=== PATIENT | female | born 1995 | race Caucasian/White ===

== ENCOUNTER 2017-07-28 06:47 | Day surgery (SDC) | payer BC ==
[~2017-07-28 06:47] MED LIST: Lactated Ringers 1,000 ML IV SCH; Lidocaine 1%/Sod Bicarbonate in NS 8.4% 1 ML Syringe PRN; Sodium Chloride 0.9% 10 ML Syringe FLUSH PRN
[2017-07-28] MEDS ORDERED: Dexamethasone 4 MG/ML 5 ML MDV ONE (06:54)
[2017-07-28] MEDS ORDERED: fentaNYL 250 MCG/5 ML SDV ONE (06:54)
[2017-07-28] MEDS ORDERED: HYDROmorphone 1 MG/ML Syringe ONE (06:54)
[2017-07-28] MEDS ORDERED: Rocuronium 50 MG/5 ML Vial ONE (06:54)
[2017-07-28] MEDS ORDERED: Ondansetron 4 MG/2 ML SDV ONE (06:54)
[2017-07-28] MEDS ORDERED: Midazolam 1 MG/ML 2 ML SDV ONE (06:54)
[2017-07-28] MEDS ORDERED: Lidocaine 1% 4 ML ONE (06:54)
[2017-07-28] MEDS ORDERED: Propofol 200 MG/20 ML SDV ONE (06:54)
[2017-07-28] MEDS ORDERED: Ketorolac 30 MG/ML SDV ONE (06:55)
[2017-07-28] MEDS ORDERED: Lactated Ringers 1,000 ML ONE (07:06)
--- NOTE | 2017-07-28 07:10 | PCM.PREANE ---
Preanesthetic Assessment - Procedure Proposed Procedure: Laparoscopy diagnostic with possible biopsies; uterine D and C hysteroscopy with conization. - Anesthesia/Transfusion/Family Hx Anesthesia History: Prior Anesthesia Without Reaction Family History of Anesthesia Reaction: No Transfusion History: No Prior Transfusion(s) Intubation History: Unknown - Review of Systems General: No Symptoms Pulmonary: No Symptoms (1/2PPD) Cardiovascular: No Symptoms Gastrointestinal: Abdominal Pain, Diarrhea Neurological: No Symptoms Other: Reports: Easy Bleeding, Easy Bruising, Depression, Anxiety - Physical Assessment NPO Status Date: 07/27/17 NPO Status Time: 23:00 Pulse: 96 O2 Sat by Pulse Oximetry: 97 Respiratory Rate: 16 Blood Pressure: 131/74 Temperature: 37.2 C Height: 1.72 m Weight: 84 kg ASA Class: 1 Mental Status: Alert & Oriented x3 Dentition: Reports: Normal Dentition Thyro-Mental Finger Breadths: 3 Mouth Opening Finger Breadths: 3 ROM/Head Extension: Full Lungs: Clear to Auscultation, Normal Respiratory Effort Cardiovascular: Regular Rate, Regular Rhythm - Lab Values: Labs were reviewed. - Allergies Allergies/Adverse Reactions: Allergies Allergy/AdvReac Type Severity Reaction Status Date / Time amoxicillin [From Augmentin] Allergy Cannot Verified 07/27/17 12:51 Remember clavulanic acid Allergy Cannot Verified 07/27/17 12:51 [From Augmentin] Remember - Anesthesia Plan Pre-Op Medication Ordered: None - Acknowledgements Anesthesia Type Planned: General Anesthesia Pt an Appropriate Candidate for the Planned Anesthesia: Yes Alternatives and Risks of Anesthesia Discussed w Pt/Guardian: Yes Pt/Guardian Understands and Agrees with Anesthesia Plan: Yes PreAnesthesia Questionnaire HEENT History: Reports: Impaired Vision, Other (See Below) Other HEENT History: wears contacts Cardiovascular History: Reports: None Respiratory History: Reports: None Gastrointestinal History: Reports: None [employer] History: Reports: Endometriosis, , Other (See Below) Other OB/BYN History: YVONNE II, HPV, LGSIL, menorrhagia, mild dysplasia of cervic , pelvic pain, prolonged menstruation Musculoskeletal History: Reports: None Neurological History: Reports: None Psychiatric History: Reports: Anxiety, Depression, Suicide Attempt Endocrine/Metabolic History: Reports: None Hematologic History: Reports: Anemia Immunologic History: Reports: None Oncologic (Cancer) History: Reports: None Dermatologic History: Reports: None - Past Surgical History Head Surgeries/Procedures: Reports: None HEENT Surgical History: Reports: Tonsillectomy Cardiovascular Surgical History: Reports: None Respiratory Surgical History: Reports: None GI Surgical History: Reports: None Female Surgical History: Reports: Other (See Below) Other Female Surgeries/Procedures: colposcopy Endocrine Surgical History: Reports: None Neurological Surgical History: Reports: None Musculoskeletal Surgical History: Reports: None Oncologic Surgical History: Reports: None Dermatological Surgical History: Reports: None - SUBSTANCE USE Smoking Status *Q: Former Smoker Recreational Drug Use History: No - HOME MEDS Home Medications: Home Meds Norethindrone-E.estradiol-Iron [Loestrin Fe 1.5-30 Tablet] 1 tab PO DAILY [History] - CURRENT (IN HOUSE) MEDS Current Meds: Current Medications Lactated Ringer's (Ringers, Lactated) 1,000 mls @ 125 mls/hr IV ASDIRECTED AMPARO Stop: 07/28/17 23:00 Lidocaine/Sodium Bicarbonate (Buffered Lidocaine 1% In Ns 8.4%) 0.25 ml .XX ONETIME PRN PRN Reason: Prior to IV Start Stop: 07/28/17 18:00 Sodium Chloride (Saline Flush) 10 ml FLUSH ASDIRECTED PRN PRN Reason: Keep Vein Open Stop: 07/28/17 18:00 Discontinued Medications Dexamethasone (Dexamethasone) Confirm Administered Dose 20 mg .ROUTE .STK-MED ONE Stop: 07/28/17 06:55 Fentanyl (Sublimaze) Confirm Administered Dose 250 mcg .ROUTE .STK-MED ONE Stop: 07/28/17 06:55 Hydromorphone HCl (Dilaudid) Confirm Administered Dose 1 mg .ROUTE .STK-MED ONE Stop: 07/28/17 06:55 Lidocaine HCl (Xylocaine-Mpf 1%) Confirm Administered Dose 4 mls @ as directed .ROUTE .STK-MED ONE Stop: 07/28/17 06:55 Lactated Ringer's (Ringers, Lactated) Confirm Administered Dose 1,000 mls @ as directed .ROUTE .STK-MED ONE Stop: 07/28/17 07:07 Ketorolac Tromethamine (Toradol) Confirm Administered Dose 30 mg .ROUTE .STK- MED ONE Stop: 07/28/17 06:56 Midazolam HCl (Versed 1 Mg/Ml) Confirm Administered Dose 2 mg .ROUTE .STK-MED ONE Stop: 07/28/17 06:55 Ondansetron HCl (Zofran) Confirm Administered Dose 4 mg .ROUTE .STK-MED ONE Stop: 07/28/17 06:55 Propofol (Diprivan 20 Ml) Confirm Administered Dose 200 mg .ROUTE .STK-MED ONE Stop: 07/28/17 06:55 Rocuronium Gurley (Zemuron) Confirm Administered Dose 50 mg .ROUTE .STK-MED ONE Stop: 07/28/17 06:55
[2017-07-28] MEDS ORDERED: Lidocaine 1% with EPINEPHrine 1:100,000 20 ML MDV ONE (07:28)
[2017-07-28] MEDS ORDERED: Bupivacaine 0.5% 30 ML SDV ONE (07:28)
[2017-07-28] MEDS ORDERED: Sodium Chloride 0.9% 50 ML SDV ONE (07:28)
[2017-07-28] MEDS ORDERED: Ondansetron 4 MG/2 ML SDV IVPUSH PRN (07:31)
[2017-07-28] MEDS ORDERED: ceFAZolin 1 GM Vial ONE ×2 (09:02)
[2017-07-28] MEDS ORDERED: Neostigmine Methylsulfate 10 MG/10 ML MDV ONE (09:04)
[2017-07-28] MEDS ORDERED: Glycopyrrolate 0.2 MG/ML SDV ONE ×4 (09:04)
--- NOTE | 2017-07-28 10:04 | PCM.OPNOTE ---
- General Post-Op/Procedure Note Date of Surgery/Procedure: 07/28/17 Operative Procedure(s): Laparoscopy with biopsy. Conization of the cervix. Hysteroscopy with D&C Pre Op Diagnosis: Moderate dysplasia (YVONNE-2), pelvic pain, menorrhagia, anemia Post-Op Diagnosis: Same Anesthesia Technique: General ET Tube Primary Surgeon: Iain Baeza Secondary Surgeon: Bob Colindres Anesthesia Provider: Christian Cifuentes (Milana Boyle CRNAs) Lactation Nurse: Bong Celeste (MS4) Lactation Nurse: Kenzie Collins (PAS) Fluid Replacement, Intraop: 1,800 Output, Urine Amount: 300 EBL in mLs: 20 Drain/Tube Comments:: None Complications: None Condition: Good Free Text/Narrative:: Patient was transported to operating room #2 and placed under general anesthesia with endotracheal intubation in the low dorsal lithotomy position. SCDs in place and functioning prior to surgery and Ancef 2 g given intravenously prior surgery. Prepared and draped in a sterile fashion. Timeout was performed confirming name date of and procedure as laparoscopy possible removal of a tube and ovary in (neither tube nor ovary removed) conization of the cervix hysteroscopy with dilatation and curettage. The patient had 2 mL of Marcaine 0.5% injected at the umbilicus and at the suprapubic region where planned 5 mm trocar incisions were made varies needle was introduced at the umbilicus and pneumoperitoneum was obtained and 5 mm port introduced without difficulty. A 5 mm port was also placed at the suprapubic region to allow manipulation of the pelvic organs. Prompt visualization of pelvic organs was accomplished the left and right tubes and ovaries appeared normal. A small detached appendix epiploicae was noted in the cul-de-sac and removed. The cul-de-sac showed no significant amount of endometriosis but 1 small spot on the right side was biopsied that was suspicious for endometriosis. The anterior cul-de-sac was inspected and 1 small area to the right of the uterus was biopsied as well. The uterus appeared normal the appendix was normal gallbladder and liver area normal no hepatic adhesions. The pneumoperitoneum was reduced sponge needle pack asthma sharp count correct 2 and the's 2 incisions closed with 3-0 Monocryl interrupted. Attention turned to the pelvic area and injecting approximately 10 mL of 0.25% lidocaine with epinephrine and multiple confluent areas Lugol staining of the cervix was then performed and central area at the squamocolumnar junction with one additional spot of decreased staining at approximately 1300 hrs. the anchor sutures at 3 and 9:00 were placed with 0 Monocryl. The conization was performed cutting the cone at 3:00. The endocervical curettage was then performed. The uterus sounded to 8.5 cm. The endocervical canal was dilated to accommodate the hysteroscope. Endometrial cavity was inspected there was a significant amount of tissue but no polyps were identified. Endometrial curetting was performed all tissue sent to pathology for tissue evaluation the area of the conization was then electrocoagulated for hemostasis and Monsel's solution was applied patient was transported postanesthesia care unit in satisfactory condition no blood transfusions required not anticipated. Patient was given Toradol 30 mg IV. 14 pictures were taken. Image 001 shows the left round ligament portion of the left fallopian tube and fimbriated end small portion the ovary seen near the central portion of the picture. Image 002 shows the left ovary proximal portion of the left fallopian tube and round ligament. Image 003 shows a right ovary and fimbriated end of fallopian tube on the right side. Image 004 shows better view of the fimbriated end of fallopian tube and the ovary. Image 005 anterior cul-de-sac. Image 006 shows the appendix image 007 shows the appendix image 008 shows the liver with gallbladder normal in appearance image 009 shows area above the liver with no adhesions image 010 shows posterior cul-de-sac a area with light brown staining 3 biopsy performed on 1 these areas to evaluate for possible endometriosis. Image 011 shows area after biopsy performed with no bleeding. Image 012 shows anterior cul-de-sac with small light brown colored streak that could be consistent with endometriosis biopsy performed is area as well. Image 013 shows small excrescence on the uterus and not felt to be significant a small fibrous area just to the right of that area as where the biopsy was performed. Image 014 shows the endometrial cavity with significant amount of tissue prior to the D&C.
[2017-07-28] MEDS: fentaNYL 100 MCG/2 ML SDV IVPUSH PRN ×2 (10:06→10:14)
--- NOTE | 2017-07-28 10:07 | PCM.POSTAN ---
POST ANESTHESIA ASSESSMENT - MENTAL STATUS Mental Status: Alert, Oriented - VITAL SIGNS Pulse Rate: 112 SaO2: 99 Resp Rate: 18 Blood Pressure: 126/64 Temperature: 36.7 C - RESPIRATORY Respiratory Status: Respiratory Rate WNL, Airway Patent, O2 Saturation Stable - CARDIOVASCULAR CV Status: Pulse Rate WNL, Blood Pressure Stable - GASTROINTESTINAL GI Status: No Symptoms - PAIN Pain Score: 6 - POST OP HYDRATION Hydration Status: Adequate & Stable
[2017-07-28] MEDS: HYDROmorphone 0.5 MG/0.5 ML Syringe IVPUSH PRN ×2 (10:08→10:24)
[2017-07-28] MEDS ORDERED: Acetaminophen/oxyCODONE 325-5 MG Tab PO ONE (11:00)
--- NOTE | 2017-07-28 11:48 | PCM48HPAN ---
Post Anesthesia Note - EVALUATION WITHIN 48HRS OF ANESTHETIC Vital Signs in Normal Range: Yes Patient Participated in Evaluation: Yes Respiratory Function Stable: Yes Airway Patent: Yes Cardiovascular Function Stable: Yes Hydration Status Stable: Yes Pain Control Satisfactory: Yes Nausea and Vomiting Control Satisfactory: Yes Mental Status Recovered: Yes
[2017-07-28 11:53] VITALS: BP 113/56
== END 2017-07-28 12:35 | disposition home or self-care (01) ==
LOC: JD.SDS 06:47
PROVIDERS: ATTEND Obstetrics & Gynecology
DX: N87.1 Moderate cervical dysplasia (principal); F32.9 Major depressive disorder, single episode, unspecified; F41.9 Anxiety disorder, unspecified; B97.7 Papillomavirus as the cause of diseases classified elsewhere; Z88.1 Allergy status to other antibiotic agents; Z88.8 Allergy status to other drugs, medicaments and biological substances; Z79.899 Other long term (current) drug therapy; Z91.5 Personal history of self-harm; Z98.890 Other specified postprocedural states; F17.210 Nicotine dependence, cigarettes, uncomplicated
CPT/HCPCS: 57522; 58558; A9270; J0690; J1100; J1170; J1885; J2250; J2405; J2710; J3010; J3490; J7120; 00840; J2704